=== PATIENT | male | born 1965 | race Caucasian/White ===

== ENCOUNTER 2018-12-09 01:54 | Observation (INO) | payer SELFPAY ==
[2018-12-09 02:24] LABS: #Eosinphils 0.3 thou/uL (0.0-0.7); #Lymphocytes 1.5 thou/uL (1.20-3.40); #Monocytes 0.3 thou/uL (0.11-0.59); #Neutrophils 2.1 thou/uL (1.40-6.50); %Basophils 0.8 % (0.0-1.0); %Eosinophils 6.6 % (0.0-10.0); %Lymphocytes 36.2 % (21.0-51.0); %Monocytes 7.3 % (0.0-10.0); %Neutrophils 49.1 % (42.0-75.0); Hemoglobin 13.2 g/dL (14.0-18.0); Mean Corpuscular HGB CONC 34.7 g/dL (32.0-36.0); Mean Corpuscular Hemoglobin 27.7 pg (27.0-31.0); Mean Corpuscular Volume 79.9 fL (78.0-98.0); Mean Platelet Volume 8.7 fL (7.4-10.4); Platelet Count 151 thou/uL (130-400); RBC Distribution Width 12.5 % (11.5-14.5); Red Blood Cell (RBC) Count 4.77 mill/uL (4.70-6.10); White Blood Cell (WBC) Count 4.2 thou/uL (4.8-10.8)
[2018-12-09] MEDS ORDERED: Nitroglycerin 2% Ointment 1 INCH/1 GM Packet ONE (02:33)
[2018-12-09] MEDS ORDERED: Nitroglycerin 0.4mg/Hour PATCH ONE (02:33)
[2018-12-09 02:41] LABS: ALT (SGPT) 29 U/L (8-55); AST (SGOT) 19 U/L (5-34); Albumin 4.3 g/dL (3.5-5.0); Alkaline Phosphatase 45 U/L (40-110); Anion Gap 18 mmol/L (10-20); BUN (Urea Nitrogen) 10 mg/dL (8.4-25.7); Bilirubin, Total 0.3 mg/dL (0.2-1.2); Calc. Creatinine Clearance 0 mL/min (70-130); Calcium 8.6 mg/dL (7.8-10.44); Carbon Dioxide 18 mmol/L (22-29); Chloride 104 mmol/L (98-107); Estimated GFR-MDRD Greater than 90; Globulin 3.2 g/dL (2.4-3.5); Glucose 206 mg/dL (70-105); Potassium 3.3 mmol/L (3.5-5.1); Protein, Total 7.5 g/dL (6.0-8.3); Sodium 137 mmol/L (136-145)
[2018-12-09 03:05] LABS: Hemoglobin A1c 6.7 % (4.0-6.0)
[2018-12-09] MEDS ORDERED: Acetaminophen 500 MG TAB ONE (03:36)
[2018-12-09 05:54] LABS: Troponin I Less than 0.010 ng/mL (< 0.028)
--- NOTE | 2018-12-09 07:46 | RAD ---
XR Chest 1 View Portable History: Chest pain Comparison: Chest radiograph September 2018 Findings: Scattered atelectatic changes both lung bases. No pneumothorax or effusion. Multiple midline sternotomy wires. No acute osseous abnormality. Impression: Mild cardiomegaly and scattered atelectatic changes.
--- NOTE | 2018-12-09 08:36 | CT ---
PRELIMINARY REPORT/[facility]/EMERGENCY AFTER HOURS PROCEDURE: Addendum created by Clemente Sunshine MD on 12/09/2018 4:59 AM Central Time ([place] & [place]) Findings were di scussed with DAVID DIAMOND at 12/09/2018 4:59 AM CDT. Initial Report created on 12/09/2018 4:52 AM [place] tral Time ([place] & [place]) PROCEDURE INFORMATION: Exam: CT Angiography Chest With Contrast Exam date and time: 12/09/2018 4:26 AM Clinical history: 53 years old, male; Cough; Patient HX: M53 presents to ED w/ chest pain. PT reports left upper chest pain, no radiation, constant x2 hours. Reports pain is similar to when he had heart attack 1.5 years ago. Has taken aspirin today. PT has not taken his hbp medication, plavix or any of his prescribed medications x3 wks due to financial reasons. Has been taking aspirin (81mg x2 a day). PT has not been following a edger liner, medications are filled by pcp norm. Denies smokin g HX or drug abuse, reports drinking occasionally, not daily, reports having about 4 drinks today. PT denies SOB, diaphoresis, fatigue, recent injury or falls, abdominal pain, leg pain, headaches, visio n changes, leg swelling, n/v/d, blood in urine or stool, fever, chills, or any other complaints. Pmhx - heart disease; Heart surgery triple bypass, here, July 2010; Heart stents placed in 2016 after bloc kage and chest pain, oot ([place], unsure of name); Hbp; High cholesterol; Diabetes; No personal or fa delvis HX of blood clots; Mother of heart attack TECHNIQUE: Imaging protocol: Computed tomographic angiography of the chest with intravenous contrast. 3D rendering: MIP reconstructed images were created and reviewed. COMPARISON: No relevant prior studies available. FINDINGS: Pulmonary arteries: There is no evidence of peripheral filling defects within the pulmonary arterial circulation to suggest pulmonary embolism. Aorta: Unremarkable. No aortic aneurysm. No aortic dissection. Lungs: There is a 14 mm right lower lobe spiculated nodule adherent to the major fissure. Pleural space: Unremarkable. No pneumothorax. No pleural effusion. Heart: Unremarkable. No cardiomegaly. No pericardial effusion. Lymph nodes: Unremarkable. No enlarged lymph nodes. Bones/joints: There are sternal wires consistent with previous sternotomy incision. Soft tissues: Unremarkable. IMPRESSION: 1. There is no CT evidence of acute pulmonary embolism. 2. There is a 14 mm right lower lobe spiculated nodule adherent to the major fissure. Highly suspicio us nodule(s). Consider PET/CT, or tissue sampling.(Bennett et al., Fleischner Society, 2017) Thank you for allowing us to participate in the care of your patient. Dictated and Authenticated by: Clemente Sunshine MD 12/09/2018 4:52 AM Central Time ([place] & [place]) FINAL REPORT EMERGENCY AFTER HOURS CTA CHEST: COMPARISON: 09/18/18. FINDINGS/IMPRESSION: I agree with the findings and impression given in the preliminary report per [facility] physician. 1. No evidence of pulmonary thromboembolism. 2. There is a spiculated nodule in the superior aspect of the right lower lobe. This previously was an area of ground-glass attenuation and may represent resolving pneumonia. Recommend a follow-up CT o f the chest in 3 months to ensure resolution.
[2018-12-09] MEDS ORDERED: Nitroglycerin 0.4 MG TAB (25 Tab Bottle) SL PRN (09:20)
[2018-12-09] MEDS ORDERED: Ondansetron ODT 4 MG TAB PO PRN (09:21)
[2018-12-09] MEDS ORDERED: Ondansetron PF 4 MG/2 ML Vial IVP PRN (09:21)
[2018-12-09] MEDS ORDERED: Tuberculin PPD 0.1 ML VIAL I-DERMAL SCH (09:30)
[2018-12-09 09:45] LABS: Troponin I 0.014 ng/mL (< 0.028)
[2018-12-09 09:52] VITALS: TEMP 97.2; BMI 27.1
[2018-12-09] MEDS ORDERED: ISOVUE-370 76%-LOCM 1 ML ONE (12:00)
[2018-12-09 12:17] VITALS: BP 164/89
--- NOTE | 2018-12-09 17:58 | SS ---
DATE OF ADMISSION: 12/09/2018 DATE OF DISCHARGE: 12/09/2018 REASON FOR ADMISSION: Left-sided chest pain. HISTORY OF PRESENTING ILLNESS: The patient gives history of left-sided constant chest pain from yesterday midnight. He complains of it being a nagging pain worse on physical movement. Has some dry cough but no expectoration. No fever. No complaints of loss of appetite or weight. No history of fever including evening rise of fever. No sick contacts in the family. He has never been to halfway, snf, or nursing home. PAST MEDICAL AND SURGICAL HISTORY: History of CABG, diabetes mellitus type 2, hypertension, dyslipidemia, prior history of cardiomyopathy with EF of 25%. Three-vessel CABG done in July of 2010. He has had 2 stents placed in 2016 in [place]. CURRENT MEDICATIONS: Please note, the patient is off all his medication from last 3 weeks due to financial reasons. He was supposed to take; 1. Lisinopril 10 mg daily. 2. Aspirin 81 mg daily. 3. Plavix 75 mg daily. 4. Coreg 25 mg twice daily. 5. Metformin 1000 mg daily. 6. Atorvastatin 80 mg daily. 7. Glimepiride 1 mg daily. 8. Isosorbide mononitrate 120 mg daily. 9. Gemfibrozil 600 mg twice daily. ALLERGIES: NO KNOWN DRUG ALLERGIES. PERSONAL HISTORY: Does not abuse alcohol or drugs. No history of smoking. FAMILY HISTORY: Mother at the age of 54. She has had history of coronary artery disease and breast cancer. He does not know much about his father, although he at the age of 65. CODE STATUS: Full. REVIEW OF SYSTEMS: CONSTITUTIONAL: Negative for weight loss or gain, ability to conduct usual activities. SKIN: Negative for rash, itching. EYES: Negative for double vision, pain. ENT/MOUTH: Negative for nose bleeding, neck stiffness, pain, tenderness. CARDIOVASCULAR: Negative for palpitations, dyspnea on exertion, orthopnea. RESPIRATORY: Negative for shortness of breath, wheezing, cough, hemoptysis, fever or night sweats. GASTROINTESTINAL: Negative for poor appetite, abdominal pain, heartburn, nausea , vomiting, constipation, or diarrhea. GENITOURINARY: Negative for urgency, frequency, dysuria, nocturia. MUSCULOSKELETAL: Negative for pain, swelling. NEUROLOGIC/PSYCHIATRIC: Negative for anxiety, depression. ALLERGY/IMMUNOLOGIC: Negative for skin rash, bleeding tendency. PHYSICAL EXAMINATION: GENERAL: The patient is a 53-year-old male, who is currently not in any acute distress. VITAL SIGNS: Blood pressure 138/80, pulse 100 per minute, respiratory rate 20 per minute, temperature 97.9 degrees Fahrenheit, saturating 96% on room air. NECK: Supple. No elevated JVD. HEENT: Eyes; extraocular muscles are intact. Pupils reacting to light. Oral cavity, mucous membranes are moist. No exudates or congestion. CARDIOVASCULAR SYSTEM: S1 and S2 heard. Regular rhythm. RESPIRATORY: Air entry 1+ bilateral. No rales or rhonchi. ABDOMEN: Soft. Bowel sounds heard. No tenderness, rigidity, or guarding. EXTREMITIES: No peripheral edema or calf tenderness. VASCULAR SYSTEM: Peripheral pulses 2+ bilateral. No ischemic ulcerations or gangrene. CENTRAL NERVOUS SYSTEM: No gross focal deficits noted. The patient is alert, awake and oriented well. PSYCHIATRIC SYSTEM: The patient's mood is euthymic. No hallucinations or delusions. LABORATORY DATA: CT angio chest done showed spiculated nodule in the superior aspect of the right lower lobe. This area was an area of ground-glass attenuation previously in September with resolving pneumonia. Troponin x3 negative. BUN 10, creatinine 0.8, albumin 4.3. Electrolytes were stable. H and H 13 and 38, platelet count 151, and MCV 79. CLINICAL IMPRESSION AND PLAN: The patient will be shortly discharged home. He has had 3 sets of cardiac enzymes which are negative. The patient's EKG shows normal sinus rhythm at 99 beats per minute with no gross ST-T wave changes. He has been noncompliant with his medication from last 3 weeks and was counseled regarding the same. He is given prescriptions for all his medication including two refills. He is counseled to follow up with his primary care physician, Dr. Cruz in 1 week. There was initial suspicion of possible mass in the right lower lobe. I have informally discussed his prior two CT scans with Dr. Gould. He has had pneumonia in September and has had dense patchy infiltrates in two areas of his right lung, one is completely resolved with the current CAT scan and the recurrent spiculated nodule with a bigger size infiltrate in September, likely it is bryan and resolving. He is hemodynamically stable. The patient has been advised to get a repeat CT scan in 3 months. If the nodule is still persistent, he will likely need a PET scan to rule out malignancy. He is otherwise hemodynamically stable, ambulating, and eating well prior to discharge. Please note, this is a same day admit and discharge under observation status. Job ID: [id number] [id number]
== END 2018-12-09 13:12 | disposition home or self-care (01) ==
LOC: ERS 01:54 → ERHOLD 03:21 → 2SW 03:59
PROVIDERS: ADMIT Internal Medicine; ATTEND Internal Medicine
DX: R07.9 Chest pain, unspecified (principal); E11.9 Type 2 diabetes mellitus without complications; I11.9 Hypertensive heart disease without heart failure; E78.5 Hyperlipidemia, unspecified; R91.8 Other nonspecific abnormal finding of lung field; Z95.5 Presence of coronary angioplasty implant and graft; Z79.82 Long term (current) use of aspirin; Z79.84 Long term (current) use of oral hypoglycemic drugs; Z79.02 Long term (current) use of antithrombotics/antiplatelets; Z79.899 Other long term (current) drug therapy; Z91.14 Patient's other noncompliance with medication regimen
CPT/HCPCS: 36415; 71045; 71275; 80053; 83036; 83735; 84484; 85025; 85379; 93005; 96360; G0378; Q9966